=== PATIENT | female | born 1985 | race Caucasian/White ===

== ENCOUNTER 2016-06-15 12:32 | Emergency (ER) | payer OTHER ==
[2016-06-15 12:47] VITALS: BP 112/69
--- NOTE | 2016-06-15 12:55 | UC ---
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 and the home is dirty--has had similar i past dx with scabies and treated effectively with permetherine - History of Current Complaint Chief Complaint: UCSkin Time Seen by Provider: 06/15/16 12:42 Stated Complaint: ITCHINESS, AND RASH Hx Obtained From: Patient Hx Last Menstrual Period: 06/11/16 ?: No Onset/Duration: Gradual Onset, Lasting Days - 3, Worse Since - taday Timing: Constant Onset Severity: Mild Current Severity: Mild Location: Diffuse Character: Redness Aggravating: Nothing Alleviating: Nothing Associated Signs & Symptoms: Positive: Negative Related History: Possible Reaction to: Insect - possible scabies? possible bed bugs? - Allergy/Home Medications Allergies/Adverse Reactions: Allergies Allergy/AdvReac Type Severity Reaction Status Date / Time No Known Allergies Allergy Verified 06/15/16 12:41 Review of Systems Constitutional: Negative Skin: Rash Eyes: Negative ENT: Negative Respiratory: Negative Cardiovascular: Negative Gastrointestinal: Negative Genitourinary: Negative Motor: Negative Neurovascular: Negative Musculoskeletal: Negative Neurological: Negative Psychological: Negative All Other Systems Reviewed And Are Negative: Yes PMH/Surg Hx/FS Hx/Imm Hx Previously Healthy: Yes Endocrine History Of: Denies: Diabetes, Thyroid Disease Cardiovascular History Of: Denies: Cardiac Disorders, Hypertension, Pacemaker/ICD Respiratory History Of: Denies: COPD, Asthma GI/ History Of: Denies: Gastroesophageal Reflux, Ulcer, Renal Disease Neurological History Of: Denies: CVA, Dementia, Seizures Other History Of: Negative For: Anticoagulant Therapy - Surgical History Surgical History: Yes Surgery Procedure, Year, and Place: Neck lymph node biopsy, negative - Family History Known Family History: Positive: Other - Patient denies any family history of HTN , diabetes. 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 Lives: With Family Alcohol Use: Weekly Substance Use Type: None Smoking Status (MU): Heavy Every Day Tobacco Smoker Type: Cigarettes Amount Used/How Often: 1 ppd Length of Time of Smoking/Using Tobacco: 20 years Have You Smoked in the Last Year: Yes Cessation Counseling: Counseled 3+Min - 10 Min - Immunization History Most Recent Influenza Vaccination: None Most Recent Tetanus Shot: unsure Most Recent Pneumonia Vaccination: none Physical Exam Triage Information Reviewed: Yes Appearance: Well-Appearing, No Pain Distress, Well-Nourished Vital Signs: Initial Vital Signs Temp 97.7 F 06/15/16 12:41 Pulse 86 06/15/16 12:41 Resp 18 06/15/16 12:41 BP 112/69 06/15/16 12:41 Pulse Ox 98 06/15/16 12:41 Vital Signs Reviewed: Yes Eye Exam: Normal Eyes: Positive: Conjunctiva Clear ENT Exam: Normal ENT: Positive: Normal ENT inspection, Hearing grossly normal, Pharynx normal, TMs normal. Negative: Nasal congestion, Nasal drainage, Tonsillar swelling, Tonsillar exudate, Trismus, Muffled/hoarse voice Dental Exam: Normal Neck exam: Normal Neck: Positive: Supple, Nontender Respiratory Exam: Normal Respiratory: Positive: Chest non-tender, Lungs clear, Normal breath sounds, No respiratory distress, No accessory muscle use Cardiovascular Exam: Normal Cardiovascular: Positive: RRR, No Murmur, Pulses Normal, Brisk Capillary Refill Musculoskeletal Exam: Normal Musculoskeletal: Positive: Strength Intact, ROM Intact, No Edema Neurological Exam: Normal Neurological: Positive: Alert, Muscle Tone Normal Psychological Exam: Normal Skin Exam: Normal Skin: Positive: rashes - scattered itching red bumps Course/Dx - Course Course Of Treatment: permetherine lothion, hydrocortisone cream after permeth. treatment, nicotine cesastion education information, follow with pcp, clean house and wash linens as directed - Differential Diagnoses - Skin Complaint Differential Diagnoses: Cellulitis, Contact Dermatitis, Impetigo, Local Allergic Reaction, Scabies - Diagnoses Provider Diagnoses: Scabies, Nicotine Dependant Discharge - Discharge Plan Condition: Stable Disposition: HOME Prescriptions: Hydrocortisone Valerate [Westcort] 0.2 % EX BID #45 gm Permethrin 5% CREAM* 1 applic TOPICAL SEE INSTRUCTIONS #60 gm Patient Education Materials: How to Stop Smoking (ED), Cigarette Smoking and Your Health (GEN), Scabies (ED) Referrals: Diego Chávez MD [Medical Doctor] - If Needed
== END 2016-06-15 13:04 | disposition home or self-care (01) ==
LOC: UCEAST 12:32
DX: B86 Scabies (principal); F17.210 Nicotine dependence, cigarettes, uncomplicated; Z71.6 Tobacco abuse counseling
CPT/HCPCS: 99212; G0463

== ENCOUNTER 2016-08-15 11:33 | Emergency (ER) | payer OTHER ==
[2016-08-15 11:36] VITALS: BP 114/70
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
--- NOTE | 2016-08-15 12:49 | RAD ---
HISTORY: Facial injury COMPARISONS: None TECHNIQUE: Multiple contiguous axial CT scans were obtained of the face without intravenous contrast, with coronal and sagittal multiplanar reformations. FINDINGS: BONES: There is no displaced fracture or dislocation. The orbital rim is intact. The zygomatic arch is intact. The pterygoid plates are intact. ORBITS: The globes are round. The optic nerves are symmetric. The extraocular musculature is normal. There is no post septal or intraconal inflammatory change. There is no retrobulbar hematoma. PARANASAL SINUSES: The paranasal sinuses are clear. The nasal septum is slightly deviated to the right. BRAIN AND SOFT TISSUE: Unremarkable. OTHER: None. IMPRESSION: NO FACIAL FRACTURE
[2016-08-15] MEDS ORDERED: Cephalexin CAP* 500 MG PO ONE (12:51)
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
[2016-08-15] MEDS ORDERED: Ondansetron ODT TAB* 4 MG PO ONE (13:00)
[2016-08-15] MEDS ORDERED: Ondansetron ODT TAB* 4 MG ONE (13:01)
== END 2016-08-15 13:18 | disposition home or self-care (01) ==
LOC: ED 11:33
DX: S01.81XA Laceration without foreign body of other part of head, initial encounter (principal); R51 Headache; F17.210 Nicotine dependence, cigarettes, uncomplicated; W22.8XXA Striking against or struck by other objects, initial encounter; Y93.9 Activity, unspecified; Y92.9 Unspecified place or not applicable
CPT/HCPCS: 70450; 70486; 99282; A9270-GY

== ENCOUNTER → 2016-10-02 20:24 | Emergency (ER) | payer OTHER | END | disposition left against medical advice (07) | LOC: ED 20:24 | DX: Z00.00 Encounter for general adult medical examination without abnormal findings (principal); Z53.21 Procedure and treatment not carried out due to patient leaving prior to being seen by health care provider ==

== ENCOUNTER 2016-10-02 21:41 | Emergency (ER) | payer OTHER ==
[2016-10-02 21:56] VITALS: BP 120/82
== END 2016-10-02 22:10 | disposition left against medical advice (07) ==
LOC: ED 21:41
DX: Z00.00 Encounter for general adult medical examination without abnormal findings (principal); Z53.21 Procedure and treatment not carried out due to patient leaving prior to being seen by health care provider

== ENCOUNTER 2016-10-03 11:08 | Emergency (ER) | payer OTHER ==
[2016-10-03] MEDS ORDERED: NS 0.9% 1000 ML* 1,000 ML IV ONE (13:00)
[2016-10-03 13:47] LABS: Urine Bacteria Absent (Absent); Urine Bilirubin Negative (Negative); Urine Glucose Negative (Negative); Urine Nitrite Negative (Negative)
[2016-10-03 13:58] LABS: Hematocrit 42 % (35-47); Hemoglobin 13.9 g/dl (12.0-16.0); Mean Corpuscular HGB Conc 33 g/dl (31-36); Mean Corpuscular Hemoglobin 31 pg (27-31); Mean Corpuscular Volume 94 fL (80-97); Mean Platelet Volume 8 um3 (7.4-10.4); Red Blood Count 4.45 10^6/ul (4.0-5.4); Red Cell Distribution Width 14 % (10.5-15)
[2016-10-03 14:21] LABS: ALT 14 U/L (7-52); AST 25 U/L (13-39); Albumin 4.4 g/dL (3.2-5.2); Alkaline Phosphatase 43 U/L (34-104); Amylase 35 U/L (29-103); Anion Gap 11 mmol/L (2-11); BUN/Creatinine Ratio 16.7 (8-20); Blood Urea Nitrogen 9 mg/dL (6-24); C Reactive Protein < 1.00 mg/L (< 5.00); CO2 Carbon Dioxide 24 mmol/L (22-32); Calcium 9.1 mg/dL (8.6-10.3); Chloride 103 mmol/L (101-111); EGFR African American 167.2 (>60); Globulin 2.9 g/dL (2-4); Glucose 86 mg/dL (70-100); Lipase 20 U/L (11.0-82.0); Magnesium 2.2 mg/dL (1.9-2.7); Potassium 3.4 mmol/L (3.5-5.0); Sodium 138 mmol/L (133-145); Total Protein 7.3 g/dL (6.4-8.9)
[2016-10-03 14:29] LABS: Alcohol 159 mg/dL (<10)
[2016-10-03 15:26] VITALS: BP 134/76
--- NOTE | 2016-10-03 16:02 | ED ---
Brett Keen [place], scribed for Constantin Moreno MD on 10/03/16 at 1422 . Substance Abuse/Use - HPI Summary HPI Summary: Patient is a 31 y/o F who presents to the ED requesting EtOH detox. She states that she was in rehab a few years ago and sober for a few years following that up until 8 months ago. She states that she typically drinks 3 times a week, but has been drinking straight vodka continuously for the past 1.5 weeks. She states she had a few shots this morning. Pt reports withdrawal symptoms such as shaking with abstinence form EtOH. Pt also reports that she has not eaten for the past week and has abd pain. She reports vomiting yesterday, aggravated with PO intake. She is concerned she may be . - History Of Current Complaint Chief Complaint: EDDetoxRequest Stated Complaint: WITHDRAWALS/DETOX Time Seen by Provider: 10/03/16 12:41 Hx Obtained From: Patient Hx Last Menstrual Period: 06/11/16 Onset/Duration of Drug/ETOH Abuse: Weeks Ingestion History: Type/Name Of Drug - EtOH. States Increased Use Since: Past 8 months. Overdose Characteristics: Oral Timing Of Abuse: Daily Severity Initially: Moderate Severity Currently: Moderate Character: Anxious Aggravating Factor(s): Nothing Alleviating Factor(s): Nothing Associated Signs And Symptoms: Negative - Allergies/Home Medications Allergies/Adverse Reactions: Allergies Allergy/AdvReac Type Severity Reaction Status Date / Time No Known Allergies Allergy Verified 06/15/16 12:41 PMH/Surg Hx/FS Hx/Imm Hx Endocrine/Hematology History: Denies: Hx Anticoagulant Therapy, Hx Diabetes, Hx Thyroid Disease Cardiovascular History: Denies: Hx Hypertension, Hx Pacemaker/ICD Respiratory History: Denies: Hx Asthma, Hx Chronic Obstructive Pulmonary Disease (COPD) GI History: Denies: Hx Ulcer History: Denies: Hx Renal Disease Neurological History: Denies: Hx Dementia, Hx Seizures Psychiatric History: Reports: Hx Substance Abuse - Surgical History Surgery Procedure, Year, and Place: Neck lymph node biopsy, negative Infectious Disease History: No Infectious Disease History: Denies: Hx Clostridium Difficile, Hx Hepatitis, Hx Human Immunodeficiency Virus (HIV), Hx of Known/Suspected MRSA, Hx Shingles, Traveled Outside the [place] in Last 30 Days - Family History Known Family History: Positive: Other - Patient denies any family history of HTN , diabetes. FHx of depression. - Social History Alcohol Use: Daily Hx Substance Use: Yes Substance Use Type: Reports: Marijuana Hx Tobacco Use: No Smoking Status (MU): Heavy Every Day Tobacco Smoker Type: Cigarettes Amount Used/How Often: 1 ppd Length of Time of Smoking/Using Tobacco: 20 years Have You Smoked in the Last Year: Yes Review of Systems Negative: Fever Positive: Abdominal Pain, Vomiting, Other - Loss of appetite. Positive: Other - See HPI. All Other Systems Reviewed And Are Negative: Yes Physical Exam - Summary Physical Exam Summary: The patient is well-nourished in no acute distress and in no acute pain. The skin is warm and dry and skin color reflects adequate perfusion. HEENT: The head is normocephalic and atraumatic. The pupils are equal and reactive. The conjunctivae are clear and without drainage. Neck is supple with full range of motion and non-tender. There are no carotid bruits. There is no neck vein distension. Respiratory: Chest is non-tender. Rhonchi and wheezing. Cardiovascular: Heart is regular rate and rhythm. There is no murmur or rub auscultated. There is no peripheral edema and pulses are symmetrical and equal. Abdomen: The abdomen is soft. Lower abd pain. No guarding or rebound. Musculoskeletal: There is no back pain noted. Extremities are non-tender with full range of motion. There is good capillary refill. Neurological: Patient is alert and oriented to person, place and time. The patient has symmetrical motor strength in all four extremities. Psychiatric: The patient exhibits mild anxiety. Triage Information Reviewed: Yes Vital Signs On Initial Exam: Initial Vitals Temp Pulse Resp BP Pulse Ox 98.4 F 97 16 134/73 98 10/03/16 11:10 10/03/16 11:10 10/03/16 11:10 10/03/16 11:10 10/03/16 11:10 Vital Signs Reviewed: Yes - [place] Coma Scale Coma Scale Total: 15 Diagnostics - Vital Signs Vital Signs Temp Pulse Resp BP Pulse Ox 10/03/16 11:12 98.4 F 99 16 134/73 98 10/03/16 11:10 98.4 F 97 16 134/73 98 - Laboratory Lab Results: Lab Results 10/03/16 10/03/16 10/03/16 Range/Units 13:19 13:45 13:45 WBC 6.0 (3.5-10.8) 10^3/ul RBC 4.45 (4.0-5.4) 10^6/ul Hgb 13.9 (12.0-16.0) g/dl Hct 42 (35-47) % MCV 94 (80-97) fL MCH 31 (27-31) pg MCHC 33 (31-36) g/dl RDW 14 (10.5-15) % Plt Count 169 (150-450) 10^3/ul MPV 8 (7.4-10.4) um3 Neut % (Auto) 52.9 (38-83) % Lymph % (Auto) 33.9 (25-47) % [place] % (Auto) 10.7 H (1-9) % Eos % (Auto) 1.0 (0-6) % Baso % (Auto) 1.5 (0-2) % Absolute Neuts (auto) 3.2 (1.5-7.7) 10^3/ul Absolute Lymphs (auto) 2.0 (1.0-4.8) 10^3/ul Absolute Monos (auto) 0.6 (0-0.8) 10^3/ul Absolute Eos (auto) 0.1 (0-0.6) 10^3/ul Absolute Basos (auto) 0.1 (0-0.2) 10^3/ul Absolute Nucleated RBC 0 10^3/ul Nucleated RBC % 0 Sodium 138 (133-145) mmol/L Potassium 3.4 L (3.5-5.0) mmol/L Chloride 103 (101-111) mmol/L Carbon Dioxide 24 (22-32) mmol/L Anion Gap 11 (2-11) mmol/L BUN 9 (6-24) mg/dL Creatinine 0.54 (0.51-0.95) mg/dL Est GFR ( Amer) 167.2 (>60) Est GFR (Non-Af Amer) 130.0 (>60) BUN/Creatinine Ratio 16.7 (8-20) Glucose 86 (70-100) mg/dL Calcium 9.1 (8.6-10.3) mg/dL Magnesium 2.2 (1.9-2.7) mg/dL Total Bilirubin 0.70 (0.2-1.0) mg/dL AST 25 (13-39) U/L ALT 14 (7-52) U/L Alkaline Phosphatase 43 (34-104) U/L C-Reactive Protein < 1.00 (< 5.00) mg/L Total Protein 7.3 (6.4-8.9) g/dL Albumin 4.4 (3.2-5.2) g/dL Globulin 2.9 (2-4) g/dL Albumin/Globulin Ratio 1.5 (1-3) Amylase 35 (29-103) U/L Lipase 20 (11.0-82.0) U/L Beta HCG, Quant < 0.60 mIU/mL Urine Color Straw Urine Appearance Clear Urine pH 6.0 (5-9) Ur Specific [place] 1.004 L (1.010-1.030) Urine Protein Negative (Negative) Urine Ketones Negative (Negative) Urine Blood 1+ H (Negative) Urine Nitrate Negative (Negative) Urine Bilirubin Negative (Negative) Urine Urobilinogen Negative (Negative) Ur Leukocyte Esterase Negative (Negative) Urine WBC (Auto) Absent (Absent) Urine RBC (Auto) Trace(0-2/hpf) (Absent) Ur Squamous Epith Cells Present H (Absent) Urine Bacteria Absent (Absent) Urine Glucose Negative (Negative) Serum Alcohol Pending Result Diagrams: 10/03/16 13:45 10/03/16 13:45 Diagnostic Studies Comment: Lactic acid: 2.8 Lab Statement: Any lab studies that have been ordered have been reviewed, and results considered in the medical decision making process. Course/Dx - Course Course Of Treatment: 31 y/o F presents with request for EtOH detox. Pt received IV fluids in ED course. Pt will be DC'd to follow up with PCP. - Diagnoses Differential Diagnosis/HQI/PQRI: Positive: Alcohol Abuse, Depression Provider Diagnoses: Acute alcohol intoxication Discharge - Discharge Plan Condition: Stable Disposition: HOME Patient Education Materials: Alcohol Intoxication (ED) Forms: *Work Release Referrals: Yunior Murphy NP [Primary Care Provider] - Additional Instructions: Please follow up with your primary care provider. The documentation as recorded by the Brett eubanks [place] accurately reflects the service I personally performed and the decisions made by , Constantin Moreno MD.
== END 2016-10-03 15:25 | disposition home or self-care (01) ==
LOC: ED 11:08
DX: F10.129 Alcohol abuse with intoxication, unspecified (principal); F41.9 Anxiety disorder, unspecified; R10.9 Unspecified abdominal pain; R11.10 Vomiting, unspecified; F17.210 Nicotine dependence, cigarettes, uncomplicated
CPT/HCPCS: 36415; 80053; 80320; 81003; 81015; 82150; 83605; 83690; 83735; 84702; 85025; 86140; 99282; G0480

== ENCOUNTER 2017-11-05 01:38 | Emergency (ER) | payer SELFPAY ==
[2017-11-05] MEDS ORDERED: Pantoprazole IV* 40 MG IV ONE (02:00)
[2017-11-05] MEDS ORDERED: Metoclopramide IV* 5 MG/ML 2 ML VIAL IV ONE (02:00)
[2017-11-05] MEDS ORDERED: NS 0.9% 1000 ML* 1,000 ML IV ONE ×2 (02:02→03:31)
[2017-11-05] MEDS ORDERED: Thiamine IV* 100 MG, Folic Acid IV* 1 MG, Multiple Vitamin IV ADULT* 10 ML in NS 0.9% 1... IV ONE (02:02)
--- NOTE | 2017-11-05 02:06 | ED ---
GI/ HPI - HPI Summary HPI Summary: This is scribe Kerri Williamson documenting for attending physician Soto Newman M.D. Pt is a 32 y/o female BIBA who presents to [facility] c/o hematemesis. She states she began vomiting blood 3 hours ago, and c/o 8/10 throat pain due to the vomiting. Pt has been drinking a gallon of vodka and smoking a pack of cigarettes a day for 20 years. She also states she cant urinate or produce a BM. Pt states she thinks she has liver failure. - History of Current Complaint Chief Complaint: EDNauseaVomitDiarrh Time Seen by Provider: 11/05/17 01:55 Stated Complaint: THROAT PAIN Hx Obtained From: Patient Hx Last Menstrual Period: 06/11/16 Onset/Duration: Started Hours Ago - 3, Still Present Timing: Constant Current Severity: Severe Pain Intensity: 8 Location of Pain: Other - Throat Pain Characteristics: Burning Associated Signs and Symptoms: Positive: Hematemesis, Nausea, Vomiting, Constipation, Other: - Difficulty urinating. Negative: Diarrhea Aggravating Factor(s): Liquids - Drinking "a gallon of vodka" a day and smoking 1 ppd Alleviating Factor(s): Nothing - Allergy/Home Medications Allergies/Adverse Reactions: Allergies Allergy/AdvReac Type Severity Reaction Status Date / Time No Known Allergies Allergy Verified 06/15/16 12:41 PMH/Surg Hx/FS Hx/Imm Hx Endocrine/Hematology History: Denies: Hx Anticoagulant Therapy, Hx Diabetes, Hx Thyroid Disease Cardiovascular History: Denies: Hx Hypertension, Hx Pacemaker/ICD Respiratory History: Denies: Hx Asthma, Hx Chronic Obstructive Pulmonary Disease (COPD) GI History: Denies: Hx Ulcer History: Denies: Hx Renal Disease Neurological History: Denies: Hx Dementia, Hx Seizures Psychiatric History: Reports: Hx Substance Abuse - Surgical History Surgery Procedure, Year, and Place: Neck lymph node biopsy, negative Infectious Disease History: No Infectious Disease History: Denies: Hx Clostridium Difficile, Hx Hepatitis, Hx Human Immunodeficiency Virus (HIV), Hx of Known/Suspected MRSA, Hx Shingles, Traveled Outside the [place] in Last 30 Days - Family History Known Family History: Positive: Other - depression Negative: Hypertension, Diabetes - Social History Alcohol Use: Daily Alcohol Amount: 1 gallon of vodka since age 12 Hx Substance Use: Yes Substance Use Type: Reports: Marijuana Hx Tobacco Use: No Smoking Status (MU): Heavy Every Day Tobacco Smoker Type: Cigarettes Amount Used/How Often: 1 ppd Length of Time of Smoking/Using Tobacco: 20 years Have You Smoked in the Last Year: Yes Review of Systems Positive: Sore Throat Positive: Vomiting - Blood, Nausea, Other - Difficulty producing BM. Negative: Diarrhea Positive: other - Difficulty urinating All Other Systems Reviewed And Are Negative: Yes Physical Exam - Summary Physical Exam Summary: VITAL SIGNS: Reviewed. GENERAL: Patient is an intoxicated FEMALE who is lying comfortable in the stretcher. Patient is not in any acute respiratory distress. HEAD AND FACE: No signs of trauma. No ecchymosis, hematomas or skull depressions. No sinus tenderness. EYES: PERRLA, EOMI x 2, No injected conjunctiva, no nystagmus. EARS: Hearing grossly intact. Ear canals and tympanic membranes are within normal limits. MOUTH: Oropharynx within normal limits. Spitting normal saliva. NECK: Supple, trachea is midline, no adenopathy, no JVD, no carotid bruit, no c- spine tenderness, neck with full ROM. CHEST: Symmetric, no tenderness at palpation LUNGS: Clear to auscultation bilaterally. No wheezing or crackles. CVS: Regular rate and rhythm, S1 and S2 present, no murmurs or gallops appreciated. ABDOMEN: Soft, non-tender. No signs of distention. No rebound no guarding, and no masses palpated. Bowel sounds are normal. EXTREMITIES: FROM in all major joints, no edema, no cyanosis or clubbing. NEURO: Alert and oriented x 3. No acute neurological deficits. Speech is normal and follows commands. SKIN: Dry and warm RECTAL: Empty. No blood or masses. Triage Information Reviewed: Yes Vital Signs On Initial Exam: Initial Vitals Temp Pulse Resp BP Pulse Ox 98.6 F 95 18 112/69 97 11/05/17 01:42 11/05/17 01:42 11/05/17 01:42 11/05/17 01:42 11/05/17 01:42 Vital Signs Reviewed: Yes Diagnostics - Vital Signs Vital Signs Temp Pulse Resp BP Pulse Ox 11/05/17 01:45 86 118/73 93 11/05/17 01:42 98.6 F 95 18 112/69 97 - Laboratory Result Diagrams: 11/05/17 02:12 11/05/17 02:12 Lab Statement: Any lab studies that have been ordered have been reviewed, and results considered in the medical decision making process. Re-Evaluation - Re-Evaluation First Eval Re-Evaluation Time: 06:00 Change: Improved Comment: Pt feels better after medications. GIGU Course/Dx - Course Course Of Treatment: Pt is a 32 y/o female BIBA who presents to [facility] c/o hematemesis. She states she began vomiting blood 3 hours ago, and c/o 8/10 throat pain due to the vomiting. Pt has been drinking a gallon of vodka and smoking a pack of cigarettes a day for 20 years. She also states she cant urinate or produce a BM. A rectal exam revealed Empty. No blood or masses. Pt had high lactic acid and anion gap most likely secondary to alcohol and vomiting. Repeat lactic acid and anion gap were normal after hydrating. Pt feels better after medications. Final dx is alcoholic gastritis. Pt will be discharged home with instructions to not drink alcohol, and prescriptions for Protonix and Reglan. Pt is agreeable with this plan. - Diagnoses Provider Diagnoses: Alcoholic gastritis Discharge - Sign-Out/Discharge Documenting (check all that apply): Patient Departure - Discharge - Discharge Plan Condition: Stable Disposition: HOME Prescriptions: Metoclopramide TAB* [Reglan TAB*] 10 mg PO Q6H PRN #20 tab PRN Reason: Nausea/Vomiting Pantoprazole TAB (NF) [Protonix TAB (NF)] 40 mg PO DAILY #30 tab Patient Education Materials: Gastritis (ED), Abuse of Alcohol (ED) Referrals: Yunior Murphy NP [Primary Care Provider] - (1-2 days) Additional Instructions: Do not consume alcohol. RETURN TO THE EMERGENCY DEPARTMENT FOR CHANGING OR WORSENING SYMPTOMS
[2017-11-05 02:22] LABS: ABS Basophils 0.1 10^3/ul (0-0.2); ABS Eosinophils 0.2 10^3/ul (0-0.6); ABS Lymphocytes 1.6 10^3/ul (1.0-4.8); ABS Monocytes 0.7 10^3/ul (0-0.8); ABS Neutrophils 2.5 10^3/ul (1.5-7.7); ABS Nucleated RBC 0 10^3/ul; Eosinophil % 3.1 % (0-6); Hematocrit 43 % (35-47); Hemoglobin 14.9 g/dl (12.0-16.0); Lymphocyte % 31.8 % (25-47); Mean Corpuscular HGB Conc 35 g/dl (31-36); Mean Corpuscular Hemoglobin 32 pg (27-31); Mean Corpuscular Volume 92 fL (80-97); Mean Platelet Volume 7.4 um3 (7.4-10.4); Nucleated Red Blood Cells % 0.1; Platelet Count 109 10^3/ul (150-450); Red Blood Count 4.69 10^6/ul (4.00-5.40); Red Cell Distribution Width 13 % (10.5-15)
[2017-11-05 02:30] LABS: INR 0.86 (0.77-1.02)
[2017-11-05 02:40] LABS: EGFR Non-African American 121.4 (>60)
[2017-11-05] MEDS ORDERED: Potassium Chlor TAB* 20 MEQ TAB.ER PO ONE (03:32)
[2017-11-05] MEDS ORDERED: Lidocaine 2% VISCOUS* 15 ML UDC PO ONE (04:45)
[2017-11-05] MEDS ORDERED: Lidocaine 2% VISCOUS* 15 ML UDC ONE (04:47)
[2017-11-05 05:53] LABS: Urine Appearance Clear; Urine Blood 1+ (Negative); Urine Color Yellow; Urine Ketones 1+ (Negative); Urine Protein Negative (Negative); Urine Red Blood Cell 1+(3-5/hpf) (Absent); Urine Specific Gravity 1.012 (1.010-1.030); Urine Urobilinogen Negative (Negative); Urine White Blood Cell Trace(0-5/hpf) (Absent)
[2017-11-05 06:19] VITALS: BP 115/69
== END 2017-11-05 06:44 | disposition home or self-care (01) ==
LOC: ED 01:38
DX: K29.20 Alcoholic gastritis without bleeding (principal); F10.10 Alcohol abuse, uncomplicated; K59.00 Constipation, unspecified; J02.9 Acute pharyngitis, unspecified; R39.198 Other difficulties with micturition; F17.210 Nicotine dependence, cigarettes, uncomplicated
CPT/HCPCS: 36415; 80053; 80320; 81003; 81015; 82150; 83605; 83690; 83735; 84702; 85025; 85610; 85730; 86140; 87086; 96365; 96366; 96375; 99283; A9270-GY; G0480; J2765; J3411

== ENCOUNTER 2017-12-26 17:02 | Emergency (ER) | payer SELFPAY ==
--- NOTE | 2017-12-26 18:57 | ED ---
Substance Abuse/Use - HPI Summary HPI Summary: This is a 32 y/o woman with h/o alcohol abuse who presents worried about detoxing from alcohol. She states she drinks heavily on a daily basis, and when she doesn't drink she gets severe tremors, diaphoresis, diarrhea and vomiting. She would like to get into an inpatient detox program. - History Of Current Complaint Chief Complaint: EDSubstanceAbuse Stated Complaint: ETOH Time Seen by Provider: 12/26/17 18:44 Hx Last Menstrual Period: 06/11/16 Timing Of Abuse: Daily Severity Currently: Severe Character: Anxious - Allergies/Home Medications Allergies/Adverse Reactions: Allergies Allergy/AdvReac Type Severity Reaction Status Date / Time No Known Allergies Allergy Verified 06/15/16 12:41 Home Medications: Home Medications NK [No Home Medications Reported] 12/26/17 [History Confirmed 12/26/17] PMH/Surg Hx/FS Hx/Imm Hx Endocrine/Hematology History: Denies: Hx Anticoagulant Therapy, Hx Diabetes, Hx Thyroid Disease Cardiovascular History: Denies: Hx Hypertension, Hx Pacemaker/ICD Respiratory History: Denies: Hx Asthma, Hx Chronic Obstructive Pulmonary Disease (COPD) GI History: Reports: Other GI Disorders - alcoholic gastritis Denies: Hx Ulcer History: Denies: Hx Renal Disease Neurological History: Denies: Hx Dementia, Hx Seizures Psychiatric History: Reports: Hx Substance Abuse - Surgical History Surgery Procedure, Year, and Place: Neck lymph node biopsy, negative Infectious Disease History: No Infectious Disease History: Denies: Hx Clostridium Difficile, Hx Hepatitis, Hx Human Immunodeficiency Virus (HIV), Hx of Known/Suspected MRSA, Hx Shingles, Traveled Outside the [place] in Last 30 Days - Family History Known Family History: Positive: Other - depression Negative: Hypertension, Diabetes - Social History Alcohol Use: Daily Alcohol Amount: 1 gallon of vodka since age 12 Hx Substance Use: Yes Substance Use Type: Reports: Marijuana Hx Tobacco Use: No Smoking Status (MU): Heavy Every Day Tobacco Smoker Type: Cigarettes Amount Used/How Often: 1 ppd Length of Time of Smoking/Using Tobacco: 20 years Have You Smoked in the Last Year: Yes Review of Systems Positive: Skin Diaphoresis Eyes: Negative Positive: Dental Pain. Negative: Epistaxis Cardiovascular: Negative Respiratory: Negative Positive: Shortness Of Breath Positive: Abdominal Pain, Vomiting, Diarrhea Neurological: Negative Positive: Anxious, Depressed All Other Systems Reviewed And Are Negative: Yes Physical Exam - Summary Physical Exam Summary: General: This is a well-developed, well- nourished white female lying on the stretcher in no apparent distress. The patient does not appear ill or toxic. HEENT:Extraocular movements are intact. There is no scleral icterus. Conjunctiva are normal without pallor. Pharynx is clear without exudate or swelling. Dentition is unremarkable. There is no sign of head trauma. Neck: Supple, no adenopathy noted. Lungs: Lungs are clear to auscultation. There are no signs of respiratory distress. Coronary: Peripheral perfusion is good. Heart sounds are regular, a normal S1 and S2 were auscultated. There is no gallop rhythm, nor any pathological sounded murmurs. Abdomen: The abdomen appears normal and is nondistended. Normoactive bowel sounds are present. On palpation, there is no significant tenderness, nor any guarding or rebound. There is no hepatosplenomegaly, nor any masses. Genitourinary: Deferred Back: Good range of motion is observed. There are no surface abnormalities nor any scoliosis. Extremities: Good range of motion was observed in all 4 extremities. There is no sign of any trauma to the extremities. Neurologic: The patient is awake and alert, speech is fluent in conversation is appropriate. There are no focal motor abnormalities. Cranial nerves are grossly intact. Deep tendon reflexes are 2+ and symmetric. There is no ataxia observed. Psychiatric. The patients affect is felt to be normal and appropriate. She appears intoxicated with slurred speech and mild ataxia. There is no sign of any hallucinations or delusions, or any other signs of psychosis. Vital Signs On Initial Exam: Initial Vitals Temp Pulse Resp BP Pulse Ox 37.1 C 88 16 118/66 95 12/26/17 17:05 12/26/17 17:05 12/26/17 17:05 12/26/17 17:05 12/26/17 17:05 Diagnostics - Vital Signs Vital Signs Temp Pulse Resp BP Pulse Ox 12/26/17 17:05 37.1 C 88 16 118/66 95 - Laboratory Result Diagrams: 12/26/17 18:54 12/26/17 18:54 Lab Statement: Any lab studies that have been ordered have been reviewed, and results considered in the medical decision making process. Re-Evaluation - Re-Evaluation First Eval Re-Evaluation Time: 05:57 Change: Unchanged Comment: Pt has been observed overnight, alcohol is metabolizing and pt not evincing any overt withdrawal signs at present. She does not require inpt detox at this point, so can be discharged with referrals to outpatient treatment facilities. Course/Dx - Diagnoses Provider Diagnoses: Alcohol intoxication Discharge - Sign-Out/Discharge Documenting (check all that apply): Patient Departure - Discharge Plan Condition: Good Disposition: HOME Patient Education Materials: Alcohol Intoxication (ED), Abuse of Alcohol (ED), Alcohol Withdrawal (ED) Referrals: [facility] [Outside] [facility] [Outside] [facility] [Outside] - Billing Disposition and Condition Condition: GOOD Disposition: Home - Attestation Statements Document Initiated by Rogerio: Yes Documenting Scribe: Bo Telles Provider For Whom Rogerio is Documenting (Include Credential): Eamon Hodges MD Scribe Attestation: Bo Keen scribed for Eamon Hodges MD on 12/27/17 at 0611. Scribe Documentation Reviewed: Yes Provider Attestation: The documentation as recorded by the Bo eubanks accurately reflects the service I personally performed and the decisions made by me, Eamon Hodges MD
[2017-12-26 19:07] LABS: ABS Neutrophils 1.7 10^3/ul (1.5-7.7); Hematocrit 39 % (35-47); Hemoglobin 13.5 g/dl (12.0-16.0); Mean Corpuscular HGB Conc 34 g/dl (31-36); Mean Corpuscular Hemoglobin 33 pg (27-31); Mean Corpuscular Volume 98 fL (80-97); Mean Platelet Volume 7.7 um3 (7.4-10.4); Platelet Count 80 10^3/ul (150-450); Red Blood Count 4.03 10^6/ul (4.00-5.40); Red Cell Distribution Width 16 % (10.5-15); White Blood Count 3.6 10^3/ul (3.5-10.8)
[2017-12-26 19:20] LABS: EGFR Non-African American 116.7 (>60)
[2017-12-26 19:42] LABS: ABS Basophils 0 10^3/ul (0-0.2); ABS Eosinophils 0.1 10^3/ul (0-0.6); ABS Lymphocytes 1.4 10^3/ul (1.0-4.8); ABS Monocytes 0.4 10^3/ul (0-0.8); ABS Nucleated RBC 0 10^3/ul; Eosinophil % 2.7 % (0-6); Nucleated Red Blood Cells % 0.2
[2017-12-27 06:25] VITALS: BP 95/61
== END 2017-12-27 06:19 | disposition home or self-care (01) ==
LOC: ED 17:02
DX: F10.129 Alcohol abuse with intoxication, unspecified (principal); F17.210 Nicotine dependence, cigarettes, uncomplicated; R06.02 Shortness of breath; R10.9 Unspecified abdominal pain; F32.9 Major depressive disorder, single episode, unspecified
CPT/HCPCS: 36415; 80053; 80307; 80320; 85025; 99283; G0480

== ENCOUNTER 2018-01-06 20:40 | Emergency (ER) | payer SELFPAY ==
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
--- NOTE | 2018-01-07 08:25 | ED ---
Progress - Progress Note Progress Note: SIGN-OUT RECEIVED FROM DR. BLEDSOE AT [facility] PENDING SOCIAL WORK CONSULT. Pt is a 32 y/o F presenting last night to ED as 2208, pt is intoxicated and does not have a place to sleep tonight. This morning pt is observed to have a nml gait, appears sober. Course/Dx - Course Course Of Treatment: SIGN-OUT RECEIVED FROM DR. BLEDSOE AT [facility] PENDING SOCIAL WORK CONSULT. After consulting with social work, pt will be discharged in cab to go to [facility]. - Diagnoses Provider Diagnoses: Alcohol intoxication, Homelessness Discharge - Sign-Out/Discharge Documenting (check all that apply): Patient Departure - DC, Receiving Sign-Out Receiving patient FROM: Soto Bledsoe - social work consult - Discharge Plan Condition: Stable Disposition: HOME Patient Education Materials: Alcohol Intoxication (ED) Referrals: [facility] [Outside] [facility] [place] [facility] [Outside] Additional Instructions: Return to the emergency department for changing or worsening symptoms. Establish and follow up with a primary care provider. - Attestation Statements Document Initiated by Scribe: Yes Documenting Scribe: Nilesh Coelho Provider For Whom Scribe is Documenting (Include Credential): Dr. Aaron Ramirez MD Scribe Attestation: I, Nilesh Coelho, jeded for Dr. Aaron Ramirez MD on 01/07/18 at 1741.
[2018-01-07 08:30] VITALS: BP 107/89
== END 2018-01-07 08:29 | disposition home or self-care (01) ==
LOC: ED 20:40
DX: F10.129 Alcohol abuse with intoxication, unspecified (principal); Z59.0 Homelessness; F17.210 Nicotine dependence, cigarettes, uncomplicated
CPT/HCPCS: 99282

== ENCOUNTER 2018-01-24 17:26 | Emergency (ER) | payer MEDICAID ==
[2018-01-24] MEDS ORDERED: NS 0.9% 1000 ML* 1,000 ML IV ONE (18:01)
[2018-01-24 18:08] LABS: ABS Basophils 0 10^3/ul (0-0.2); ABS Eosinophils 0.1 10^3/ul (0-0.6); ABS Lymphocytes 1.4 10^3/ul (1.0-4.8); ABS Monocytes 0.5 10^3/ul (0-0.8); ABS Neutrophils 1.3 10^3/ul (1.5-7.7); ABS Nucleated RBC 0 10^3/ul; Hematocrit 40 % (35-47); Hemoglobin 13.7 g/dl (12.0-16.0); Lymphocyte % 42.2 % (25-47); Mean Corpuscular HGB Conc 34 g/dl (31-36); Mean Corpuscular Hemoglobin 35 pg (27-31); Mean Corpuscular Volume 101 fL (80-97); Mean Platelet Volume 7.9 um3 (7.4-10.4); Nucleated Red Blood Cells % 0.1; Platelet Count 74 10^3/ul (150-450); Red Blood Count 3.95 10^6/ul (4.00-5.40); Red Cell Distribution Width 14 % (10.5-15); White Blood Count 3.4 10^3/ul (3.5-10.8)
[2018-01-24 18:16] LABS: INR 0.86 (0.77-1.02)
[2018-01-24 18:23] LABS: EGFR Non-African American 128.5 (>60)
--- NOTE | 2018-01-24 18:25 | ED ---
Respiratory - HPI Summary HPI Summary: 33-year-old female presents with vaginal bleeding for the past 15 days. She states that sometimes she has spotting and sometimes it is heavy bleeding. She also noticed some increased bruising across her body. She admits to low abdominal pain. She admits to occasional nausea but no vomiting. No fevers. She states that she is also been having knee pain. No injury to her knees. no fevers. She also admits to feeling fatigued and weak. she sleeps outside. - History of Current Complaint Chief Complaint: EDVaginalBleeding Stated Complaint: VAGINAL BLEEDING Time Seen by Provider: 01/24/18 17:42 Pain Intensity: 8 - Allergy/Home Medications Allergies/Adverse Reactions: Allergies Allergy/AdvReac Type Severity Reaction Status Date / Time No Known Allergies Allergy Verified 01/06/18 20:49 PMH/Surg Hx/FS Hx/Imm Hx Endocrine/Hematology History: Denies: Hx Anticoagulant Therapy, Hx Diabetes, Hx Thyroid Disease Cardiovascular History: Denies: Hx Hypertension, Hx Pacemaker/ICD Respiratory History: Denies: Hx Asthma, Hx Chronic Obstructive Pulmonary Disease (COPD) GI History: Reports: Other GI Disorders - alcoholic gastritis Denies: Hx Ulcer History: Denies: Hx Renal Disease Neurological History: Denies: Hx Dementia, Hx Seizures Psychiatric History: Reports: Hx Substance Abuse - Surgical History Surgery Procedure, Year, and Place: Neck lymph node biopsy, negative - Immunization History Immunizations Up to Date: Yes Infectious Disease History: No Infectious Disease History: Denies: Hx Clostridium Difficile, Hx Hepatitis, Hx Human Immunodeficiency Virus (HIV), Hx of Known/Suspected MRSA, Hx Shingles, Traveled Outside the [place] in Last 30 Days - Family History Known Family History: Positive: Other - depression Negative: Hypertension, Diabetes - Social History Alcohol Use: Daily Alcohol Amount: 1 gallon of vodka since age 12 Hx Substance Use: Yes Substance Use Type: Reports: Marijuana Hx Tobacco Use: No Smoking Status (MU): Heavy Every Day Tobacco Smoker Type: Cigarettes Amount Used/How Often: 1 ppd Length of Time of Smoking/Using Tobacco: 20 years Have You Smoked in the Last Year: Yes Review of Systems Negative: Fever Negative: Chest Pain Negative: Shortness Of Breath Positive: Other - vaginal bleeding Positive: Bruising All Other Systems Reviewed And Are Negative: Yes Physical Exam Triage Information Reviewed: Yes Vital Signs On Initial Exam: Initial Vitals Temp Pulse Resp BP Pulse Ox 97.9 F 89 16 114/77 96 01/24/18 17:34 01/24/18 17:34 01/24/18 17:34 01/24/18 17:34 01/24/18 17:34 Vital Signs Reviewed: Yes Appearance: Positive: Well-Appearing Skin: Positive: Warm, Dry, Other - brusing over body Head/Face: Positive: Normal Head/Face Inspection Eyes: Positive: Normal, Conjunctiva Clear ENT: Positive: Pharynx normal Respiratory/Lung Sounds: Positive: Clear to Auscultation, Breath Sounds Present Cardiovascular: Positive: Normal, RRR Musculoskeletal: Positive: Strength/ROM Intact - knees Neurological: Positive: Normal Psychiatric: Positive: Normal Diagnostics - Vital Signs Vital Signs Temp Pulse Resp BP Pulse Ox 01/24/18 17:34 97.9 F 89 16 114/77 96 - Laboratory Lab Results: Lab Results 01/24/18 01/24/18 01/24/18 Range/Units 17:50 17:50 17:50 WBC 3.4 L (3.5-10.8) 10^3/ul RBC 3.95 L (4.00-5.40) 10^6/ul Hgb 13.7 (12.0-16.0) g/dl Hct 40 (35-47) % MCV 101 H (80-97) fL MCH 35 H (27-31) pg MCHC 34 (31-36) g/dl RDW 14 (10.5-15) % Plt Count 74 L (150-450) 10^3/ul MPV 7.9 (7.4-10.4) um3 Neut % (Auto) 37.5 L (38-83) % Lymph % (Auto) 42.2 (25-47) % [place] % (Auto) 16.0 H (0-7) % Eos % (Auto) 3.0 (0-6) % Baso % (Auto) 1.3 (0-2) % Absolute Neuts (auto) 1.3 L (1.5-7.7) 10^3/ul Absolute Lymphs (auto) 1.4 (1.0-4.8) 10^3/ul Absolute Monos (auto) 0.5 (0-0.8) 10^3/ul Absolute Eos (auto) 0.1 (0-0.6) 10^3/ul Absolute Basos (auto) 0 (0-0.2) 10^3/ul Absolute Nucleated RBC 0 10^3/ul Nucleated RBC % 0.1 INR (Anticoag Therapy) 0.86 (0.77-1.02) APTT 29.9 (26.0-36.3) seconds Sodium 143 (135-145) mmol/L Potassium 3.4 L (3.5-5.0) mmol/L Chloride 102 (101-111) mmol/L Carbon Dioxide 26 (22-32) mmol/L Anion Gap 15 H (2-11) mmol/L BUN 7 (6-24) mg/dL Creatinine 0.54 (0.51-0.95) mg/dL Est GFR ( Amer) 155.5 (>60) Est GFR (Non-Af Amer) 128.5 (>60) BUN/Creatinine Ratio 13.0 (8-20) Glucose 102 H (70-100) mg/dL Calcium 9.3 (8.6-10.3) mg/dL Total Bilirubin 0.60 (0.2-1.0) mg/dL AST 151 H (13-39) U/L ALT 88 H (7-52) U/L Alkaline Phosphatase 64 (34-104) U/L C-Reactive Protein < 1.00 (<8.01) mg/L Total Protein 7.2 (6.4-8.9) g/dL Albumin 4.7 (3.2-5.2) g/dL Globulin 2.5 (2-4) g/dL Albumin/Globulin Ratio 1.9 (1-3) Beta HCG, Quant Pending Result Diagrams: 01/24/18 17:50 01/24/18 17:50 Lab Statement: Any lab studies that have been ordered have been reviewed, and results considered in the medical decision making process. - Ultrasound No standard instances Ultrasound Interpretation: No Acute Changes Ultrasound Interpretation Completed By: Radiologist Disposition - Course Course Of Treatment: 33-year-old female presents with vaginal bleeding for the past 15 days. She states that sometimes she has spotting and sometimes it is heavy bleeding. She also noticed some increased bruising across her body. She admits to low abdominal pain. She admits to occasional nausea but no vomiting. No fevers. She states that she is also been having knee pain. No injury to her knees. no fevers. She also admits to feeling fatigued and weak. she sleeps outside. On exam full range of motion of the knees. No abnormality noted to the knees. Has some lower abdominal pain. Labs wbc slightly low. Platelets are consistent with previous. LFTs elevated. this is consistent with patient drinking history. transvaginal u/s normal. can not placed on control as is smoker. told to follow up with [facility] operator and [facility]. told to cut back on drinking. patient wants to be cleared for detox for next week which is cleared. patient understand and agrees with plan. - Differential Dx - Cardiopulmonary Differential Diagnoses - Cardiopulmonary: Other - , endometrosis, dysmenorrhea - Diagnoses Provider Diagnoses: Dysmenorrhea Discharge - Sign-Out/Discharge Documenting (check all that apply): Patient Departure - Discharge Plan Condition: Good Disposition: HOME Patient Education Materials: Dysmenorrhea (ED) Referrals: [facility] [Outside] Bree Espinoza MD [Medical Doctor] - [facility] [Outside] Additional Instructions: Drink plenty of fluids Take ibuprofen every 6 hours for pain as needed you are medical clear for detox Follow up with [facility] machine operator Establish care with primary Return to ED if develop any new or worsening symptoms - Billing Disposition and Condition Condition: GOOD Disposition: Home
--- NOTE | 2018-01-24 19:50 | RAD ---
EXAM: US Pelvis, Transvaginal EXAM DATE/TIME: 01/24/2018 6:48 PM CLINICAL HISTORY: 33 years old, female; Pain; Pelvic pain; Additional info: Lower abdominal pain TECHNIQUE: Real-time transvaginal pelvic ultrasound (complete) with image documentation. Transvaginal imaging was used for better evaluation of the endometrium and adnexa. COMPARISON: No relevant prior studies available. FINDINGS: Uterus/cervix: Uterus measures 6.4 x 2.6 x 4.1 cm. Endometrial stripe measures 4.8 mm. Right adnexa: The right ovary measures 3.2 x 1.6 x 2.4 cm. Multiple small echogenic foci are present. No mass or torsion. Left adnexa: The left ovary measures 2.3 x 1.4 x 1.3 cm. No mass or torsion. Free fluid: Small amount of free fluid is present. IMPRESSION: Normal pelvic ultrasound. To contact [facility] with a general question: [facility] - [phone] For direct physician to physician contact: Physician Hotline - [phone] [facility] ([facility] Facility ID #[id number])
[2018-01-24 20:08] VITALS: BP 120/79
== END 2018-01-24 20:08 | disposition home or self-care (01) ==
LOC: ED 17:26
DX: N94.6 Dysmenorrhea, unspecified (principal); R11.0 Nausea; R53.83 Other fatigue; M25.569 Pain in unspecified knee; M79.81 Nontraumatic hematoma of soft tissue; F17.210 Nicotine dependence, cigarettes, uncomplicated
CPT/HCPCS: 36415; 76830; 80053; 84702; 85025; 85610; 85730; 86140; 86703; 96360; 99282